=== PATIENT | male | born 2000 | race Caucasian/White ===

== ENCOUNTER 2018-02-26 16:45 | Emergency (ER) | payer OTHER ==
[~2018-02-26] VITALS: Ht 182.9 cm; Wt 88.6 kg
[2018-02-26] MEDS ORDERED: NAPROXEN 250 MG TAB PO ONE (17:30)
[2018-02-26] MEDS ORDERED: METOCLOPRAMIDE 10 MG TAB PO ONE (17:30)
[2018-02-26] MEDS ORDERED: diphenhydrAMINE 50 MG CAP PO ONE (17:30)
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
[2018-02-26] MEDS ORDERED: REGL10TA6 PO (18:03)
[2018-02-26] MEDS ORDERED: NAPR-50 PO (18:03)
[2018-02-26] MEDS ORDERED: CYCL10TA PO (18:03)
[2018-02-26 18:09] VITALS: BP 134/73
== END 2018-02-26 18:11 | disposition home or self-care (01) ==
LOC: M ED 16:45
DX: Z04.1 Encounter for examination and observation following transport accident (principal); S16.1XXA Strain of muscle, fascia and tendon at neck level, initial encounter; S06.0X0A Concussion without loss of consciousness, initial encounter; V87.8XXA Person injured in other specified noncollision transport accidents involving motor vehicle (traffic), initial encounter; Y92.410 Unspecified street and highway as the place of occurrence of the external cause; Z88.2 Allergy status to sulfonamides; Z88.1 Allergy status to other antibiotic agents

== ENCOUNTER 2018-09-23 13:09 | Emergency (ER) | payer OTHER ==
[~2018-09-23] VITALS: Ht 182.9 cm; Wt 87.4 kg
[~2018-09-23 13:09] MED LIST: CYCL10TA PO; NAPR-837 PO; REGL10TA6 PO
[2018-09-23] MEDS ORDERED: ONDA4TAB6 PO (15:44)
[2018-09-23] MEDS ORDERED: ONDANSETRON 4 MG ORAL DISINTEGRATING TAB (Q0162 PER 1MG) PO ONE (15:45)
[2018-09-23 15:48] VITALS: BP 138/81
== END 2018-09-23 15:53 | disposition home or self-care (01) ==
LOC: M ED 13:09
DX: S06.0X0A Concussion without loss of consciousness, initial encounter (principal); W18.39XA Other fall on same level, initial encounter; Y92.89 Other specified places as the place of occurrence of the external cause; Z87.891 Personal history of nicotine dependence
CPT/HCPCS: 99283; Q0162

== ENCOUNTER 2019-09-23 19:25 | Emergency (ER) | payer OTHER ==
[~2019-09-23 19:25] MED LIST changes: +CYCL-707 PO; -CYCL10TA PO; +ONDA4TAB6 PO
[2019-09-23] MEDS ORDERED: NAPROXEN 250 MG TAB ONE (22:20)
== END 2019-09-23 22:40 | disposition home or self-care (01) ==
LOC: M ED 19:25
DX: Z11.59 Encounter for screening for other viral diseases (principal); Z20.828 Contact with and (suspected) exposure to other viral communicable diseases; R51 Headache; R11.2 Nausea with vomiting, unspecified; R19.7 Diarrhea, unspecified; M79.10 Myalgia, unspecified site
CPT/HCPCS: 99283; U0002